=== PATIENT | male | born 1990 | race Caucasian/White ===

== ENCOUNTER 2018-09-12 13:27 | Emergency (ER) | payer SELFPAY ==
[2018-09-12] MEDS ORDERED: ONDANSETRON 4 MG/2 ML VIAL ONE (13:54)
[2018-09-12] MEDS ORDERED: NA CHLORIDE 0.9% 1,000 ML ONE (13:54)
[2018-09-12] MEDS ORDERED: MORPHINE 4 MG/ML SYR ONE (13:54)
[2018-09-12 14:08] LABS: Absolute Lymphocytes (CBC) 2.3 K/uL (0.7-4.9); Absolute Monocytes 0.6 K/uL (0.1-1.3); Absolute Neutrophil 4.2 K/uL (1.8-8.0); Basophils % 0.8 % (0-1.3); Hematocrit 42.2 % (39.6-49.0); Lymphocytes % 29.9 % (15.3-44.8); MPV 11.2 fL (7.6-11.3); Monocytes % 7.5 % (3.3-12.3); RBC Red Blood Cell Count 4.51 M/uL (4.33-5.43)
--- NOTE | 2018-09-12 14:12 | RAD REPORT ---
EXAM DESCRIPTION: CT - Stone Protocol - 09/12/2018 2:00 pm CLINICAL HISTORY: Abdominal pain. Lower abdominal pain. COMPARISON: None. TECHNIQUE: Computed axial tomography of the abdomen pelvis was obtained without oral or IV contrast. Lack of IV and oral contrast limits evaluation of solid organs, bowel, and vessels. Coronal reformat agustin images were obtained and reviewed. All CT scans are performed using dose optimization technique as appropriate and may include automated exposure control or mA/KV adjustment according to patient size. FINDINGS: A renal calculus is not seen. An ureteral calculus is not noted. A bladder calculus is not present. The liver, spleen, pancreas and adrenals appear grossly normal There is no evidence of diverticulitis. The appendix appears normal A moderate amount of stool is present within the colon. Rectum is mildly distended with stool measuri ng 5.9 centimeters IMPRESSION: Negative for a genitourinary calculus
[2018-09-12 14:16] LABS: ALT/SGPT 26 U/L (12-78); AST/SGOT 15 U/L (15-37); Albumin 3.5 g/dL (3.4-5.0); Alkaline Phosphatase 84 U/L (45-117); BUN Blood Urea Nitrogen 10 mg/dL (7-18); Bicarbonate 28 mmol/L (21-32); Bilirubin Direct 0.1 mg/dL (0-0.2); Bilirubin Total 0.2 mg/dL (0.2-1.0); Glucose Level 129 mg/dL (74-106); Lipase 149 U/L (73-393); Potassium 3.7 mmol/L (3.5-5.1); Protein, Total 6.7 g/dL (6.4-8.2); Sodium Level 142 mmol/L (136-145)
[2018-09-12 14:30] LABS: Urine Bacteria <20 /HPF (NONE SEEN); Urine Culture Reflex Order NOT NEEDED; Urine Mucus 2+ /HPF (NONE SEEN); Urine RBC <5 /HPF (NONE SEEN)
[2018-09-12 14:31] LABS: Urine Blood NEGATIVE (NEG); Urine Glucose NEGATIVE (NEG); Urine Protein NEGATIVE (NEG); Urine Specific Gravity 1.025 (1.005-1.030)
--- NOTE | 2018-09-12 15:14 | ER ---
Nurse's Notes [facility] Name: Joshua Parson Age: 27 yrs Sex: Male : 1990 Arrival Date: 09/12/2018 Time: 13:29 Bed 26 Private MD: Diagnosis: Sprain of ligaments of lumbar spine Presentation: 09/12 13:31 Risk Assessment: Do you want to hurt yourself or someone else? Patient reports no tw2 desire to harm self or others. Initial Sepsis Screen: Does the patient meet any 2 criteria? No. Patient's initial sepsis screen is negative. Does the patient have a suspected source of infection? No. Patient's initial sepsis screen is negative. Care prior to arrival: None. 13:38 Presenting complaint: Patient states: Mid and low back pain, reports hx of back pain ph but that it was worse yesterday, states, " He could barely move." Pt also reports nausea and difficulty urinating, denies V/D or fever. Transition of care: patient was not received from another setting of care. Onset of symptoms was September 12, 2018. 13:38 Method Of Arrival: Ambulatory ph 13:38 Acuity: NIYAH 3 ph Historical: - Allergies: 13:37 No Known Allergies; tw2 - Home Meds: 13:37 None [Active]; tw2 - PMHx: 13:37 None; tw2 - PSHx: 13:37 None; tw2 - Immunization history:: Adult Immunizations. - Social history:: Smoking status: . - Ebola Screening: : Patient denies travel to an Ebola-affected area in the 21 days before illness onset. Screenin:31 Abuse screen: Denies threats or abuse. Nutritional screening: No deficits noted. tw2 Tuberculosis screening: No symptoms or risk factors identified. Fall Risk None identified. Assessment: 13:33 General: Appears in no apparent distress. Behavior is calm, cooperative, appropriate tw2 for age. Pain: Complains of pain in back. Neuro: Level of Consciousness is awake, alert, obeys commands, Oriented to person, place, time, situation. Cardiovascular: Patient's skin is warm and dry. Respiratory: Airway is patent Respiratory effort is even, unlabored, Respiratory pattern is regular, symmetrical. GI: Reports nausea. : No signs and/or symptoms were reported regarding the genitourinary system. EENT: No signs and/or symptoms were reported regarding the EENT system. Derm: No signs and/or symptoms reported regarding the dermatologic system. Musculoskeletal: Range of motion:. 13:33 : Parent/caregiver report the patient having 'he really has urinated like normal and tw2 yesterday he said it hurt to urinate". 13:37 Reassessment: provider at bedside at this time. tw2 13:40 Cardiovascular: Heart tones S1 S2. Respiratory: Breath sounds are clear bilaterally. tw2 GI: Abdomen is flat, Bowel sounds present X 4 quads. Reports nausea. 14:58 Reassessment: Patient appears in no apparent distress at this time. No changes from tw2 previously documented assessment. Patient and/or family updated on plan of care and expected duration. Pain level reassessed. Patient is alert, oriented x 3, equal unlabored respirations, skin warm/dry/pink. 15:33 Reassessment: Patient appears in no apparent distress at this time. No changes from tw2 previously documented assessment. Patient and/or family updated on plan of care and expected duration. Pain level reassessed. Patient is alert, oriented x 3, equal unlabored respirations, skin warm/dry/pink. Vital Signs: 13:36 BP 143 / 81; Pulse 75; Resp 18; Temp 98.4(O); Pulse Ox 99% on R/A; tw2 14:58 BP 141 / 85; Pulse 71; Resp 17; Pulse Ox 98% on R/A; tw2 ED Course: 13:29 Patient arrived in ED. sb2 13:31 Lavern Khan, RN is Primary Nurse. tw2 13:31 Arm band placed on. tw2 13:31 Bed in low position. Call light in reach. Adult w/ patient. Pulse ox on. NIBP on. tw2 13:36 Severino Norman PA is PHCP. jm 13:36 Rohit Arrington MD is Attending Physician. jm 13:39 Triage completed. ph 13:[address] vr 13:52 Inserted saline lock: 20 gauge in right antecubital area, using aseptic technique. lt1 13:53 Initial lab(s) drawn, by me, sent to lab. lt1 14:00 CT completed. Patient tolerated procedure well. Patient moved back from CT. vr 14:19 Urine collected: clean catch specimen, clear. lt1 14:58 Report given to MIMI Thomason. tw2 15:32 No provider procedures requiring assistance completed. IV discontinued, intact, tw2 bleeding controlled, No redness/swelling at site. Pressure dressing applied. Administered Medications: 13:50 Drug: morphine 4 mg Route: IVP; Site: right antecubital; tw2 14:57 Follow up: Response: No adverse reaction; Pain is decreased tw2 13:50 Drug: Zofran 4 mg Route: IVP; Site: right antecubital; tw2 14:57 Follow up: Response: No adverse reaction tw2 13:52 Drug: NS 0.9% 1000 ml Route: IV; Rate: 1 bolus; Site: right antecubital; tw2 14:57 Follow up: Response: No adverse reaction; IV Status: Completed infusion; IV Intake: tw2 1000ml Intake: 14:57 IV: 1000ml; Total: 1000ml. tw2 Outcome: 15:12 Discharge ordered by . [facility] 15:32 Discharged to home ambulatory, with significant other. tw2 15:32 Condition: stable 15:32 Discharge instructions given to patient, significant other, Instructed on discharge instructions, follow up and referral plans. medication usage, Demonstrated understanding of instructions, follow-up care, medications, Prescriptions given X 2. 15:33 Patient left the ED. tw2 Signatures: Severino Norman PA PA jmm Davis, Victoria vr Hall, Patricia RN RN Lavern Khan RN RN tw2 Henny Alvarez2 Serena Mcghee lt1
--- NOTE | 2018-09-12 15:14 | EDPHYS ---
Physician Documentation [facility] Name: Joshua Parson Age: 27 yrs Sex: Male : 1990 Arrival Date: 09/12/2018 Time: 13:29 Bed 26 Private MD: ED Physician Rohit Arrington HPI: 09/12 13:37 This 27 yrs old Male presents to ER via Ambulatory with complaints of Back jmm Pain. 13:37 The patient presents with pain that is acute. Onset: The symptoms/episode jmm began/occurred gradually, yesterday. The pain does not radiate. Associated signs and symptoms: Pertinent negatives: fever, vomiting. This is a 27 year old male with no chronic medical condtions that presents to the ED with complaints of bilateral flank pain. states the patient has had difficulty with urination beginning yesterday. Denies gross hematuria. Denies vomiting. Patient denies injury. . Historical: - Allergies: 13:37 No Known Allergies; tw2 - Home Meds: 13:37 None [Active]; tw2 - PMHx: 13:37 None; tw2 - PSHx: 13:37 None; tw2 - Immunization history:: Adult Immunizations. - Social history:: Smoking status: . - Ebola Screening: : Patient denies travel to an Ebola-affected area in the 21 days before illness onset. ROS: 13:37 Constitutional: Negative for fever, chills, and weight loss, Eyes: Negative for injury, jmm pain, redness, and discharge, Cardiovascular: Negative for chest pain, palpitations, and edema, Respiratory: Negative for shortness of breath, cough, wheezing, and pleuritic chest pain, Abdomen/GI: Negative for abdominal pain, nausea, vomiting, diarrhea, and constipation. 13:37 Back: Positive for flank pain. 13:37 : Positive for urinary symptoms. 13:37 All other systems are negative. Exam: 13:37 Head/Face: atraumatic. Eyes: EOMI, no conjunctival erythema appreciated ENT: Moist jmm Mucus Membranes Neck: Trachea midline, Supple Chest/axilla: Normal chest wall appearance and motion. Cardiovascular: Regular rate and rhythm. No edema appreciated Respiratory: Normal respirations, no respiratory distress appreciated Abdomen/GI: Non distended, soft 13:37 Constitutional: The patient appears in no acute distress, alert, awake. 13:37 Back: CVA tenderness, that is moderate, is noted bilaterally. 13:37 Musculoskeletal/extremity: ROM: intact in all extremities. 13:37 Neuro: Orientation: is normal, Mentation: is normal, Memory: is normal. 13:37 Psych: Behavior/mood is pleasant, cooperative. Vital Signs: 13:36 BP 143 / 81; Pulse 75; Resp 18; Temp 98.4(O); Pulse Ox 99% on R/A; tw2 14:58 BP 141 / 85; Pulse 71; Resp 17; Pulse Ox 98% on R/A; tw2 MDM: 13:37 Patient medically screened. [facility] 15:09 Data reviewed: vital signs, nurses notes. Counseling: I had a detailed discussion with arturo the patient and/or guardian regarding: the historical points, exam findings, and any diagnostic results supporting the discharge/admit diagnosis, lab results, radiology results, the need for outpatient follow up, to return to the emergency department if symptoms worsen or persist or if there are any questions or concerns that arise at home. ED course: Patient's symptoms are relieved in the ED. Patient states the pain is located in a similar region to a previous injury which occurred 1 year ago. 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 Patient denies fecal incontinence. extensor hallucis longus intact. I do not suspect cord compression at this time. Patient is given return precautions for worsening symptoms. . 09/12 13:41 Order name: Basic Metabolic Panel; Complete Time: 14:28 [facility] 09/12 13:41 Order name: CBC with Diff; Complete Time: 14:14 [facility] 09/12 13:41 Order name: Creatinine for Radiology; Complete Time: 14:28 [facility] 09/12 13:41 Order name: Hepatic Function; Complete Time: 14:28 [facility] 09/12 13:41 Order name: Lipase; Complete Time: 14:28 [facility] 09/12 13:41 Order name: Urine Microscopic Only; Complete Time: 14:31 [facility] 09/12 13:41 Order name: IV Saline Lock; Complete Time: 13:53 [facility] 09/12 13:41 Order name: CT Stone Protocol [facility] 09/12 14:28 Order name: Urine Dipstick--Ancillary (enter results) 09/12 14:29 Order name: CT; Complete Time: 14:29 [facility] 09/12 14:31 Order name: Urine Dipstick-Ancillary; Complete Time: 14:31 [facility] 09/12 13:41 Order name: Labs collected and sent; Complete Time: 13:53 [facility] 09/12 13:41 Order name: Urine Dipstick-Ancillary (obtain specimen); Complete Time: 14:57 [facility] Administered Medications: 13:50 Drug: morphine 4 mg Route: IVP; Site: right antecubital; tw2 14:57 Follow up: Response: No adverse reaction; Pain is decreased tw2 13:50 Drug: Zofran 4 mg Route: IVP; Site: right antecubital; tw2 14:57 Follow up: Response: No adverse reaction tw2 13:52 Drug: NS 0.9% 1000 ml Route: IV; Rate: 1 bolus; Site: right antecubital; tw2 14:57 Follow up: Response: No adverse reaction; IV Status: Completed infusion; IV Intake: tw2 1000ml Disposition: 16:10 Co-signature as Attending Physician, Rohit Arrington MD I agree with the assessment and kdr plan of care. Disposition: 09/12/18 15:12 Discharged to Home. Impression: Sprain of ligaments of lumbar spine. - Condition is Stable. - Discharge Instructions: Back Pain, Adult. - Prescriptions for Ibuprofen 800 mg Oral Tablet - take 1 tablet by ORAL route every 8 hours As needed take with food; 30 tablet. orphenadrine citrate 100 mg Oral Tablet Sustained Release - take 1 tablet by ORAL route 2 times per day As needed; 20 tablet. - Medication Reconciliation Form, Thank You Letter, Antibiotic Education, Prescription Opioid Use, Work release form form. - Follow up: Private Physician; When: 2 - 3 days; Reason: Recheck today's complaints, Continuance of care, Re-evaluation by your physician. Signatures: Dispatcher [employer] [facility] Rohit Arrington MD MD kdr Mickail, Joel, PA PA jmm Wise, Tara, RN RN tw2 Corrections: (The following items were deleted from the chart) 15:33 15:12 09/12/2018 15:12 Discharged to Home. Impression: Sprain of ligaments of lumbar tw2 spine. Condition is Stable. Forms are Work release form, Medication Reconciliation Form, Thank You Letter, Antibiotic Education, Prescription Opioid Use. Follow up: Private Physician; When: 2 - 3 days; Reason: Recheck today's complaints, Continuance of care, Re-evaluation by your physician. arturo
== END 2018-09-12 15:33 | disposition home or self-care (01) ==
LOC: ER 13:27
DX: S33.5XXA Sprain of ligaments of lumbar spine, initial encounter (principal)
CPT/HCPCS: 36415; 74176; 76377; 80048; 80076; 81003; 81015; 83690; 85025; 96361; 96374; 96375; 99284; J2405; J7030